=== PATIENT | female | born 2005 | race Caucasian/White ===

== ENCOUNTER 2025-02-21 20:56 | Emergency (ER) | payer MEDICAID ==
[~2025-02-21] VITALS: Ht 152.4 cm; Wt 63.5 kg
[2025-02-21] MEDS ORDERED: ACETAMINOPHEN ES 500 MG TABLET ONE (22:33)
[2025-02-21] MEDS: ACETAMINOPHEN ES 500 MG TABLET PO ONE ×2 (22:39→22:46)
[2025-02-21 22:55] LABS: PREGNANCY TEST URINE QUAL NEGATIVE (NEGATIVE)
[2025-02-21] MEDS ORDERED: NAPROXEN 250 MG TABLET ONE (22:56)
[2025-02-21] MEDS: NAPROXEN 250 MG TABLET PO ONE (22:58)
[2025-02-22] MEDS ORDERED: ACET-3102 PO (00:13)
[2025-02-22] MEDS ORDERED: NAPR-1069 PO (00:14)
[2025-02-22 00:24] VITALS: BP 112/79; TEMP 98.2; O2SAT 97
== END 2025-02-22 00:25 | disposition home or self-care (01) ==
LOC: ER 21:01
DX: S30.11XA Contusion of abdominal wall, initial encounter (principal); W22.8XXA Striking against or struck by other objects, initial encounter; Y93.89 Activity, other specified; Y92.89 Other specified places as the place of occurrence of the external cause; Y99.8 Other external cause status
CPT/HCPCS: 84703-TC